=== PATIENT | female | born 1970 | race Caucasian/White ===

== ENCOUNTER 2017-01-16 14:15 | Inpatient (IN) | payer MEDICARE, MEDICAID ==
[2017-01-16] VITALS (11 sets, daily range): BP systolic 116–157; BP diastolic 71–99; O2SAT 98
[~2017-01-16] VITALS: Ht 170.2 cm; Wt 94.7 kg
[2017-01-16] MEDS ORDERED: ONDANSETRON 4MG/2ML VIAL (J2405) As Ordered ONE ×3 (14:19→18:46)
[2017-01-16] MEDS ORDERED: ONDANSETRON 4MG/2ML VIAL (J2405) IV ONE ×2 (14:30→14:45)
[2017-01-16 14:44] LABS: BASO % 0.2 % (0.0-1.0); EOS # 0.1 K/mm3 (0.0-0.50); EOS % 1.6 % (0.0-3.0); LARGE UNSTAINED CELL # 0.1 K/mm3 (0.0-0.4); LARGE UNSTAINED CELL % 1.5 % (0.0-4.0); LYMPH # 1.3 K/mm3 (1.5-4.5); LYMPH % 16.4 % (24.0-44.0); MEAN CORPUSCULAR HEMOGLOBIN 33.2 pg (27.0-33.0); MEAN CORPUSCULAR HGB CONC 35.6 g/dl (32.0-36.5); MEAN CORPUSCULAR VOLUME 93.4 fl (80.0-96.0); MONO # 0.2 K/mm3 (0.0-0.8); NEUTROPHILS # 6.1 K/mm3 (1.8-7.7); NEUTROPHILS % 77.3 % (36.0-66.0); PLATELET COUNT, AUTOMATED 272 k/mm3 (150-450); RED CELL DISTRIBUTION WIDTH 12.6 % (11.5-14.5); WHITE BLOOD COUNT 7.9 K/mm3 (4.0-10.0)
[2017-01-16] MEDS ORDERED: NS 1,000 ML IV ONE (14:45)
[2017-01-16 14:50] LABS: INR 0.93
[2017-01-16] MEDS ORDERED: PANTOPRAZOLE SODIUM 40 MG in D5W MINI-BAG PLUS 50 ML IV SCH (15:00)
[2017-01-16] MEDS ORDERED: PANTOPRAZOLE 40MG INJ (PROTONIX) (C9113) IV ONE (15:00)
[2017-01-16 15:08] LABS: ANION GAP 3 MEQ/L (8-16); BLOOD UREA NITROGEN 15 MG/DL (7-18); CALCIUM LEVEL 8.4 MG/DL (8.5-10.1); CARBON DIOXIDE LEVEL 30 MEQ/L (21-32); CHLORIDE LEVEL 107 MEQ/L (98-107); CREATININE FOR GFR 0.87 MG/DL (0.55-1.02); GLOMERULAR FILTRATION RATE > 60.0 (>58); GLUCOSE, FASTING 100 MG/DL (70-105); POTASSIUM SERUM 4.1 MEQ/L (3.5-5.1); SODIUM LEVEL 140 MEQ/L (136-145)
[2017-01-16] MEDS ORDERED: METOCLOPRAMIDE INJ 10MG/2ML VIAL (J2765) IV ONE (15:15)
[2017-01-16] MEDS ORDERED: NS 1,000 ML IV SCH (15:30)
[2017-01-16] MEDS ORDERED: PHENYLEPHRINE 0.25% NASAL SPR 15 ML As Ordered ONE (15:31)
--- NOTE | 2017-01-16 16:32 | CR ---
DATE OF CONSULTATION: 01/16/2017 CHIEF COMPLAINT: Ingestion of alkali orally. HISTORY OF PRESENT ILLNESS: This is a 46-year-old woman with history of developmental delay, ingested Drano containing hydroxide approximately at 12 noon today. The patient noticed significant burning sensation on the tongue. She was having sandwich lunch at the time of the accident of ingestion. Her sister, who was at the scene said approximately 2-3 sips were taken by the patient. The patient was brought to the emergency department (ED) for further evaluation. In the emergency department, the patient did not complain of acute respiratory distress including stridor or chest pain. Her voice is about the same according to the patient's family. She complains of pain on the dorsal surface of the tongue as well as the back of the throat. She has no prior history of accidental ingestion of alkali. PAST MEDICAL HISTORY: Developmental delay. PAST SURGICAL HISTORY: None ascertained from the family members. MEDICATIONS: None. ALLERGIES: None. REVIEW OF SYSTEMS: As ascertained in the history above; otherwise, noncontributory. PHYSICAL EXAMINATION: On examination, the patient appeared in no acute distress. No drooling was noted. No stridor or wheezes were noted. Vital signs stable. Oxygen saturation greater then 91% on room air. HEAD/NECK: Normal external ears. Nasal dorsum unremarkable. Extraocular motion symmetrical and intact. No trismus. Mild redness on the inner aspect of the upper and lower lips. Minor saliva pooling in the oral cavity. Erythematous dorsum of the tongue. Tongue exhibits full and symmetrical motion with no deviation. Mild redness along the hard and soft palate. Posterior pharyngeal wall was not clearly visualized due to significant gagging there. No palpable cervical lymphadenopathy. Trachea midline. Palpable cricoid cartilage. PROCEDURE: Flexible laryngoscopy. INDICATION: Ingestion of alkali. The patient was in the upright position on the bed in the examination room. Both sides of the nasal cavity were decongested using Afrin. The adult flexible laryngoscope was used. It was introduced via the right nostril. All the nasal cavity and nasopharynx were unremarkable. Mild swelling of the posterior pharyngeal wall was noted. There was some mild edema along the base of the tongue. Swelling was noted along both sides of the aryepiglottic folds extending down to the inlet of the esophagus. Piriform sinuses were partially visualized due to edema. Vocal cords were found to be mobile and free of mucosal lesions. IMPRESSION: This 46-year-old woman had accidental ingestion of alkali approximately 3-1/2 hours ago. PLAN: The patient will be assessed by gastroenterology for lesion in the esophagus from the ingestion. The patient will need to be monitored closely for the airway compromise. She is in no acute respiratory distress that would require immediate intubation or tracheostomy at this time. The flexible laryngoscopy will be repeated in six hours from now if careful observation route is chosen. I have discussed the plan with the family members, as well as the rest of the medical care team, the ED physician, and the hospitalist who will be admitting the patient. DIA
[2017-01-16] MEDS ORDERED: fentaNYL 100 MCG/2 ML INJECTION (J3010) As Ordered ONE (16:46)
[2017-01-16] MEDS ORDERED: MIDAZOLAM INJ 2 MG/2 ML VIAL (J2250) As Ordered ONE ×4 (16:46→20:34)
[2017-01-16] MEDS ORDERED: PROPOFOL 200 MG/20 ML VIAL As Ordered ONE (16:46)
[2017-01-16] MEDS ORDERED: SUCCINYLCHOLINE 100 MG/5 ML SYRINGE (J0330) As Ordered ONE (16:46)
[2017-01-16] MEDS ORDERED: LIDOCAINE 2% INJ 100 MG/5 ML SDV (FOR ANES.) As Ordered ONE (16:46)
--- NOTE | 2017-01-16 16:47 | HPEPDOC ---
General Date of Admission Jan 16, 2017 at 15:19 Primary Care Physician: Jr Armijo MD Chief Complaint The patient is a 46-year-old female admitted with a reason for visit of accidental ingestion Of caustic alkali which occurred around lunch time today, apparently the pt suffers from baseline cognitive impairment and lives with her mother but her sister takes her on the weekend to give her a break. Today the sister was going to work and decide to bring drain-o with her, instead of taking the bottle she poured some into a water bottle, which apparently was inadvertently given to the pt. at lunch time. Accordingly the pt has 2-3 sips, about 2 oz. and then stated "ouch my tongue hurts" and ran to the sink and vomited up her sandwich which contained small specks of bright red blood. In the ED the pt is not complaining of any SOB, nor does she have stridor or voice change according to her family who is at beside, the pt. denies abdominal pain The pt's complaint on exam was that her tongue and back of her throat were still sore, she was not vomiting and denied being nauseas. Source: Patient, Family Exam Limitations: No limitations Timing/Duration: 4-6 hours Associated Symptoms: Malaise Home Medications No Active Prescriptions or Reported Meds Allergies Coded Allergies: No Known Drug Allergy (Unverified Allergy, Unknown, 07/26/12) GME ATTESTATION My preceptor for this patient encounter was physically present in the building during the encounter and was fully available. As needed, all aspects of the patient interview, examination, medical decision making process, and medical care plan development were reviewed and approved by the preceptor. Preceptor is aware and concurs with the plan as stated in the body of this note and will attest to such by his/her cosignature. 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 except weekends when she stays with her sister Review of Symptoms Constitutional: Reports: Malaise, Denies: Chills, Fever, Weakness Eyes: Denies: Pain, Vision change ENT: Denies: Head Aches Skin: Denies: Rash Pulmonary: Denies: Dyspnea, Cough, Pleuritic Chest Pain Cardiovascular: Denies: Chest Pain, Palpitations, Orthopnea Gastrointestinal: Reports: Nausea, Denies: Vomiting, Abdominal Pain, Diarrhea, Constipation, Melena, Hematochezia Genitourinary: Denies: Dysuria Neurological: Denies: Weakness Psych: Reports: Mood Normal, Other Psych (baseline cognitive impairment) Physical Examination General Exam: Positive: Alert, Cooperative, No Acute Distress Eye Exam: Positive: PERRLA, Conjunctiva & lids normal, EOMI, Negative: Sclera icteric, Ptosis ENT Exam: Positive: Mucous membr. moist/pink, Tongue Midline, Pharyngeal Edema , Nares Patent, Other ENT (tongue is not swollen but is erythematous ), Negative: Pharynx Normal (erythema posterior pharynx) Neck Exam: Positive: Supple, Negative: JVD, thyromegaly Chest Exam: Positive: Clear to auscultation, Normal air movement, Negative: Rales, Rhonchi, Wheezing, Diminished Heart Exam: Positive: Rate Normal, Normal S1, Normal S2, Negative: Gallops, Murmurs, Rubs Abdomen Exam: Positive: Normal bowel sounds, Soft, Negative: Tenderness, Hepatospenomegaly, Mass Extremity Exam: Negative: Clubbing, Edema Psych Exam: Positive: Mental status NL, Other (pt has baseline cognitive impairment) Vital Signs Vital Signs Date Time Temp Pulse Resp B/P (MAP) Pulse Ox O2 Delivery O2 Flow Rate FiO2 01/16/17 16:17 01/16/17 14:19 96.4 98 16 99 Room Air Laboratory Data Labs 24H Laboratory Tests 2 01/16/17 14:31: White Blood Count 7.9, Red Blood Count 4.28, Hemoglobin 14.2, Hematocrit 39.9, Mean Corpuscular Volume 93.4, Mean Corpuscular Hemoglobin 33.2H, Mean Corpuscular Hemoglobin Concent 35.6, Red Cell Distribution Width 12.6, Platelet Count 272, Neutrophils (%) (Auto) 77.3H, Lymphocytes (%) (Auto) 16.4L, Monocytes (%) (Auto) 3.0, Eosinophils (%) (Auto) 1.6, Basophils (%) (Auto) 0.2, Neutrophils # (Auto) 6.1, Lymphocytes # (Auto) 1.3L, Monocytes # (Auto) 0.2, Eosinophils # (Auto) 0.1, Basophils # (Auto) 0.0, Large Unclassified Cells % 1.5 , Large Unclassified Cells # 0.1, Prothrombin Time 12.5, Prothromb Time International Ratio 0.93, Activated Partial Thromboplast Time 23.5L, Anion Gap 3L, Glomerular Filtration Rate > 60.0, Blood Urea Nitrogen 15, Creatinine 0.87, Sodium Level 140, Potassium Level 4.1, Chloride Level 107, Carbon Dioxide Level 30, Calcium Level 8.4L CBC/BMP Laboratory Tests 01/16/17 14:31 Red Blood Count 4.28, Mean Corpuscular Volume 93.4, Mean Corpuscular Hemoglobin 33.2 H, Mean Corpuscular Hemoglobin Concent 35.6, Red Cell Distribution Width 12.6, Neutrophils (%) (Auto) 77.3 H, Lymphocytes (%) (Auto) 16.4 L, Monocytes (% ) (Auto) 3.0, Eosinophils (%) (Auto) 1.6, Basophils (%) (Auto) 0.2, Neutrophils # (Auto) 6.1, Lymphocytes # (Auto) 1.3 L, Monocytes # (Auto) 0.2, Eosinophils # (Auto) 0.1, Basophils # (Auto) 0.0, Calcium Level 8.4 L Problems (1) Accidental ingestion of caustic alkali Status: Acute Response to Treatment: Stable Problem Text: ENT in ED performed flexible laryngoscopy and noted pharyngeal edema noted to esophageal inlet area - appreciate their recommendations CXR ordered for evaluation mediastinitis, no acute disease or change on preliminary radiology read out GI director of food and nutrition services consulted, will take pt to OR immediately for EGD for further evaluation-appreciate their recommendations primary concern is potential perforation, pt will be admitted to ICU and closely monitored for increasing pain, stridor, change in voice, hypotension At this time, decision to intubate is held and close monitoring will ensure with expected repeat laryngoscopy by ENT in about 6 hours pending clinical course Pt on protonix drip. Zofran for nausea Pt made NPO Started on IVF Will likely require f/u outpt with GI for potential stricture formation after acute event (2) DVT prophylaxis Status: Acute Response to Treatment: Stable Problem Text: scd teds Plan / VTE VTE Prophylaxis Ordered?: Yes GME ATTESTATION GME ATTESTATION My preceptor for this patient encounter was physically present in the building during the encounter and was fully available. As needed, all aspects of the patient interview, examination, medical decision making process, and medical care plan development were reviewed and approved by the preceptor. Preceptor is aware and concurs with the plan as stated in the body of this note and will attest to such by his/her cosignature. GME ATTESTATION GME ATTESTATION My preceptor for this patient encounter was physically present in the building during the encounter and was fully available. As needed, all aspects of the patient interview, examination, medical decision making process, and medical care plan development were reviewed and approved by the preceptor. Preceptor is aware and concurs with the plan as stated in the body of this note and will attest to such by his/her cosignature. GME ATTESTATION GME ATTESTATION My preceptor for this patient encounter was physically present in the building during the encounter and was fully available. As needed, all aspects of the patient interview, examination, medical decision making process, and medical care plan development were reviewed and approved by the preceptor. Preceptor is aware and concurs with the plan as stated in the body of this note and will attest to such by his/her cosignature. ANDREA CR DO Jan 16, 2017 16:47
[2017-01-16] MEDS ORDERED: dexameTHASONE 4 MG/ML 1ML VIAL (J1100) As Ordered ONE (18:02)
--- NOTE | 2017-01-16 18:15 | ROOR ---
Patient Name: Isela Graff Procedure Date: 01/16/2017 5:12 PM Date of : 1970 Age: 46 Gender: Female Note Status: Finalized Procedure: Upper GI endoscopy Indications: Endoscopy to assess acute esophageal injury after caustic ingestion, Exclusion of gastrointestinal injury due to caustic ingestion, Endoscopy to assess acute gastrointestinal injury after caustic ingestion Providers: Alexis Martin MD Referring MD: Kirit Hathaway MD Requesting Provider: Medicines: General Anesthesia Complications: No immediate complications. Procedure: Pre-Anesthesia Assessment: - The heart rate, respiratory rate, oxygen saturations, blood pressure, adequacy of pulmonary ventilation, and response to care were monitored throughout the procedure. The Endoscope was introduced through the mouth, and advanced to the second part of duodenum. The upper GI endoscopy was accomplished without difficulty. The patient tolerated the procedure well. Findings: Quan Caustic Ingestion Injury Grade 2a (superficial ulceration, erosions, friability, blisters, exudates, hemorrhages, whitish membranes) caustic esophagitis was found in the entire esophagus. Diffuse severe mucosal changes characterized by erythema, erosion, hemorrhagic appearance and linear erosions were found in the cardia, in the gastric fundus, in the gastric body and in the gastric antrum. The exam was otherwise without abnormality. Impression: - Caustic Ingestion Injury Grade 2a caustic esophagitis. - Erythematous, eroded, hemorrhagic appearing and linearly eroded mucosa in the cardia, gastric fundus, gastric body and antrum. - The examination was otherwise normal. - No specimens collected. Recommendation: - Return patient to hospital [facility] for ongoing care. - The findings and recommendations were discussed with the patient's family. Attending Participation: I personally performed the entire procedure. Alexis Martin MD Alexis Martin MD 01/16/2017 6:14:31 PM This report has been signed electronically. Number of Addenda: 0 Note Initiated On: 01/16/2017 5:12 PM Estimated Blood Loss: Estimated blood loss: none.
[2017-01-16] MEDS ORDERED: ONDANSETRON 4MG/2ML VIAL (J2405) IV PRN (19:00)
[2017-01-16] MEDS ORDERED: HYDROmorphone HCL 1 MG/ML SYRINGE (J1170) IV PRN (19:00)
[2017-01-16] MEDS ORDERED: PERCOCET 5MG/325MG TAB PO PRN (19:00)
[2017-01-16] MEDS ORDERED: fentaNYL 100 MCG/2 ML INJECTION (J3010) IV PRN (19:00)
[2017-01-16] MEDS ORDERED: LR 1,000 ML IV SCH (19:00)
[2017-01-16] MEDS ORDERED: cefTRIAXone SOD 2 GM in D5W MINI-BAG PLUS 50 ML IV SCH (20:00)
[2017-01-16] MEDS ORDERED: MORPHINE 2 MG/ML 1ML SYRINGE As Ordered ONE (20:33)
[2017-01-16] MEDS ORDERED: PROPOFOL 1,000 MG/100 ML VIAL As Ordered ONE ×2 (20:38→21:15)
[2017-01-16] MEDS ORDERED: MORPHINE 2 MG/ML 1ML SYRINGE IV ONE (21:15)
[2017-01-16] MEDS ORDERED: PROPOFOL 1,000 MG in APPROPRIATE DILUENT 1 EA IV SCH (21:15)
[2017-01-16] MEDS ORDERED: MIDAZOLAM INJ 5 MG/ML VIAL (J2250) IV ONE (21:15)
[2017-01-16] MEDS ORDERED: PROPOFOL 200 MG/20 ML VIAL IV ONE (21:15)
--- NOTE | 2017-01-16 21:25 | DSES ---
DATE OF ADMISSION: 01/16/2017 at 1519 DATE OF DISCHARGE: 01/16/2017 at 2020 IMMEDIATE TRANSFER TO: [facility] ([facility] due to impending esophageal rupture from an accidental ingestion of alkali causing severe esophagitis. ACCEPTING PHYSICIAN at [facility]: Dr. Medina CONSULTANTS DURING THIS ADMISSION: 1. Ears, nose and throat surgeon, Dr. Kirit Hathaway. 2. Rn Research, Dr. Alexis Martin. 3. Filter Press Tender intensive health specialist, Dr. Eagle Mccloud. PROCEDURES DURING THIS ADMISSION: 1. Laryngoscopy by Dr. Kirit Hathaway, ENT, 01/16/2017, at 1601. 2. Esophagogastroduodenoscopy by Dr. Alexis Martin at 01/16/2017 at 17:12. 3. Endotracheal intubation with mechanical ventilation at 2020, 01/16/[address] Eagle Mccloud. DISCHARGE DIAGNOSES: 1. Accidental ingestion of alkali. 2. Caustic alkali burn with severe esophagitis. 3. Caustic esophagitis with hemorrhage and erosion into the cardia, gastric fundus, gastric body and antrum. 4. Prophylactic endotracheal intubation due to impending esophageal rupture due to caustic alkali burn. 5. Pharyngeal, aryepiglottic fold extending down to the inlet of the esophagus edema. 6. Developmental delay. DISCHARGE MEDICATIONS: - dextrose 5% (D5) half normal saline 100 mL per hour - ceftriaxone 2 grams intravenous (IV) every 24 - Protonix drip 8 mg per hour HOSPITAL COURSE: This is a 46-year-old developmentally delayed female who lives with her mother usually, with her sister taking care of her on the weekends so that the mother can have a break, was brought in to the emergency room due an accidental alkali ingestion at 1300 while eating a sandwich at home for lunch. Patient's sister was going to work tomorrow and wanted to bring Drano to her work, but did not want to bring the entire jug. She then poured the Drano into a water bottle and placed it on the [employer] cabinet next to the kitchen. The sister's boyfriend made the patient a sandwich in the kitchen, and when the sister came into the kitchen, the patient complained of mouth and tongue burning pain after drinking a few sips from the blue mike-aid colored water bottle with her sandwich. She stood up and was retching over the sink with blood-tinged emesis, along with pieces of the sandwich which she had recently ingested. She was seen in the emergency room by Dr. Westley Capps and was admitted to Hospitalist Service at 1519. Ear, nose, and throat surgeon, Dr. Kirit Hathaway, performed a flexible laryngoscopy showing significant erythema, edema along both sides of the aryepiglottic fold extending down to the inlet of the esophagus, with some edema at the base of the tongue as well. Due to swelling found on both sides of the aryepiglottic fold extending down to the inlet of the esophagus, severe concern about montanez in the esophagus were raised, and EGD was performed by our abalone processor, Dr. Alexis Martin, in the operating room at 17:12. The patient was found to have ulceration, erosions, blisters, and hemorrhages with whitish membranes with severe caustic esophagitis in the entire esophagus with diffuse, severe edema and erythema, erosion and hemorrhage the cardia, gastric fundus and gastric body and gastric antrum. Dr. Martin, VINH cone marker, discussed the case with Dr. Doroteo Beyer, Cardiothoracic Surgeon, who does not repair esophageal ruptures anymore. Due to the severity of the erosions and impending esophageal rupture, Dr Martin recommended immediate transfer a tertiary care center where cardiothoracic surgery would be available should her esophagus rupture. Chest Xrays were obtained serially to check for air to rule out perforation. Vitals remained stable. Dr. Medina from medical intensive care unit (ICU) at [facility] in [place] has accepted the patient in transfer, and recommended prophylactic intubation due to the instability of her airway and potential risk of rupture and airway compromise en route to [place] as we transfer from [facility] to [facility]. The patient's family was made aware of the current condition and was in agreement with the current course of action. The patient's mother who is the patient's healthcare proxy was present at the bedside both during the laryngoscopy, was informed of the EGD results. Prior to transferring to [facility]. Dr. Eagle Mccloud was consulted for prophylactic intubation due to concerns of severe laryngeal edema, and concerns for respiratory compromise en route to [place]. Dr. Carlson, anesthesiologist cone marker, who assisted VINH Lantigua, during the earlier EGD, was consulted to assist in the prophylactic intubation in the ICU by Dr. Mccloud. Per Dr Mccloud, noticed significant progression of caustic injury with increased edema, erosions within three hours (17:12 to 20:40) from the time of the EGD to the time of the prophylactic intubation prior to transfer. Patient was had stable vitals on transfer, and family was present and in agreement with the management plan. PHYSICAL EXAMINATION ON HOSPITAL DISCHARGE (PRIOR TO INTUBATION): VITALS ON DISCHARGE: Temperature 99.8, pulse 99, respiratory rate 20, blood pressure 131/56, 99% on room air. GENERAL: The patient is awake, alert, oriented times three. She has not been intubated as of yet. HEENT: Pupils are round and reactive. Extraocular muscles are intact. Anicteric sclerae. No jaundice. No jugular venous distention. The patient has some erythema along the upper and lower lips with pooling of saliva, significant redness along the hard and soft palate. LUNGS: Clear to auscultation. No wheezes, rales, or rhonchi. HEART: S1, S2. Sinus rhythm. ABDOMEN: Soft, nontender, nondistended. Positive bowel sounds. EXTREMITIES: No cyanosis, clubbing or pitting edema. LABORATORY DATA ON DISCHARGE: White count 7.9, hemoglobin 14, hematocrit 39, platelet count 272, 77.3% neutrophils. Sodium 140, potassium 4.1, chloride 107, bicarbonate 30, BUN 15, creatinine 0.87 , glucose of 100. INR of 0.93. IMAGING: Chest x-ray no active disease. No free air. Indirect laryngoscopy done by Dr. Kirit Hathaway, flexible laryngoscopy shows unremarkable nasal and nasopharynx. Mild swelling of the posterior pharyngeal wall, edema along the base of the tongue, swelling along both sides of the aryepiglottic fold down into the esophagus. Piriform sinuses were partially visualized due to edema. Vocal cords were mobile and free of mucosal lesion. EGD performed by Dr. Alexis Martin, caustic ingestion injury grade 2A, ulceration, erosion, friability blisters, exudates, hemorrhages, white membranes , caustic esophagitis found in the entire esophagus with diffuse, severe mucosal changes characterized by erythema, erosion, hemorrhage appearance and linear erosions found in the cardia, gastric fundus, gastric body and gastric antrum. Otherwise without abnormality. TIME SPENT ON DISCHARGE: 45 minutes. MTDD
[2017-01-17] MEDS ORDERED: D5W/0.45% SODIUM CHLORIDE 1,000 ML IV SCH (01:30)
--- NOTE | 2017-01-17 06:05 | ECGEPIP ---
Stationary ECG Study [facility] - ED Test Date: 2017-01-16 Pat Name: JOSE JUAN MICHAEL Department: Room: - Gender: F Cost Analyst: CHRISTELLE : 1970 Requested By: Lino Terry Order Number: [id number] Reading MD: Lino Capps Measurements Intervals Weems Rate: 92 P: 58 SC: 140 QRS: 68 QRSD: 66 T: 63 QT: 338 QTc: 418 Interpretive Statements SINUS RHYTHM POSSIBLE LAE NO PRIORS Electronically Signed On 01-17-2017 6:04:51 EDT by Lino Capps
--- NOTE | 2017-01-17 13:20 | RO ---
DATE OF PROCEDURE: 01/16/2017 PREOPERATIVE DIAGNOSIS: Laryngeal edema. POSTOPERATIVE DIAGNOSIS: Laryngeal edema with erythematous and friable mucosa in the posterior pharynx, right greater than the left, vocal cord edema. PROCEDURE: Endotracheal tube intubation. SURGEON: Dr. Eagle Mccloud STORE FACILITY TECHNICIAN: ANESTHESIA: DESCRIPTION OF PROCEDURE: The patient was seen in the intensive care unit having consumed Drano wall cleaner. Upper GI endoscopy performed earlier showed diffuse edema with ulceration, and there was felt to be a risk for progression to esophageal disruption. The patient is to be transferred and a secure airway is required. The procedure was explained to the patient as were all the possible complications pertaining thereto and informed consent was obtained. The airway was topically anesthetized with Cetacaine. The patient was given anesthetic for the procedure with titrating doses of Versed, morphine and propofol. When sufficient relaxation had been obtained, a GlideScope was placed. The glottis was visualized but the glottic aperture was unable to be visualized adequately. The GlideScope was removed, and a #2 Smith blade was introduced with visualization of the vocal cords. The mucosa of the upper pharynx was erythematous and friable, right side greater than the left, cords were edematous but patent and moving normally. A number 8.5 endotracheal tube was placed through the vocal cords to a distance of 25 cm. The balloon was inflated, end tidal CO2 monitoring was positive. Postprocedure chest x-ray identified tube placement to be somewhat deep. The tube was retracted 1 cm. Good bilateral breath sounds were appreciated. Mechanical ventilation was initiated. There were no complications. MTDD
--- NOTE | 2017-01-17 13:20 | REP ---
PORTABLE CHEST: AP portable view of the chest is performed. There is elevation of the left hemidiaphragm. There is mild bibasilar fibroatelectatic change. No consolidation is seen. Heart is normal in size and the mediastinal silhouette is unremarkable. IMPRESSION: Mild bibasilar fibroatelectatic change. Signed by Enoc House MD 01/17/2017 07:01 P
--- NOTE | 2017-01-17 13:22 | REP ---
PORTABLE CHEST: AP portable view of the chest is performed and compared to prior exam the same day. There is placement of an endotracheal tube. The tip is about 1.1 cm above the adi. Mild discoid atelectasis is seen in the lung bases. Cardiomediastinal silhouette is unremarkable and unchanged. Signed by Enoc House MD 01/17/2017 07:14 P
--- NOTE | 2017-01-17 13:22 | REP ---
SINGLE VIEW CHEST: Comparison the same day. There is no evidence of acute infiltrate. No pleural effusion is seen. The heart is normal in size. The mediastinal silhouette is unremarkable. The visualized osseous structures are intact. IMPRESSION: No acute pulmonary disease. Signed by Enoc House MD 01/17/2017 07:14 P
--- NOTE | 2017-01-25 21:02 | CR ---
DATE OF CONSULTATION: 01/16/2017 This is a 46-year-old white female who was seen on an emergent basis due to a sudden accidental ingestion of Drano. The patient has a history of developmental delay. She apparently was staying with her sister over the weekend and was eating a sandwich and somehow accidentally swallowed an unknown amount of Drano from an apparent water bottle. The patient noticed a burning sensation in her tongue and tried to spit out her food and she apparently did have some hematemesis. The patient was seen by Dr. Kirit Hathaway in the emergency room in which he was able to examine the back of her throat and noted some swelling and edema. She apparently did not have any evidence of stridor or respiratory distress. No complaints of chest pain. The patient has some pain in the back of her throat and on the dorsal aspect of her tongue. This was not a suicidal attempt, this was an accidental ingestion. PAST MEDICAL HISTORY: 1. Developmental delay. PAST SURGICAL HISTORY: Unknown. MEDICATIONS: None. ALLERGIES: No known allergies. REVIEW OF SYSTEMS: Noncontributory. PHYSICAL EXAMINATION: Well-developed, well-nourished white female in no obvious acute distress. Chest was clear to auscultation. Cardiovascular exam showed a regular rhythm and no murmurs or gallops. Normal physiological split S1-S2. Abdomen soft, nontender. No masses, rebound, or hepatosplenomegaly. Bowel sounds are positive. Laboratory studies on admission showed a normal white count of 7900, hemoglobin was 14.2, hematocrit of 39.9. The patient's chemistry was normal. The patient's coagulation studies were normal. IMAGING STUDIES: Tests showed on 01/16/2017, chest x-rays all which were essentially normal. ANALYSIS: An accidental ingestion of Drano. At the present time, will be bringing the patient to the OR for intubation to assess esophageal and stomach involvement, to see whether she actually was able to swallow any of the Drano and cause damage. The patient probably should be maintained intubated. Will be discussing this further with thoracic surgery and the cephalometric analyst in ICU. PLAN: 1. As soon as possible, EGD to be arranged in the OR with intubation.
== END 2017-01-16 21:37 | disposition short-term general hospital (02) | DRG 917 ==
LOC: M ED 14:15 → OBSVTOIN 15:19 → M ED INP 15:19 → INTOOBSV 15:19 → M PCU 19:01 → M ICU 20:00
PROVIDERS: ADMIT General Practice; ATTEND General Practice
PROC: 0CJS8ZZ Inspection of Larynx, Via Natural or Artificial Opening Endoscopic (ICD-10-PCS; 2017-01-16)
PROC: 5A1935Z Respiratory Ventilation, Less than 24 Consecutive Hours (ICD-10-PCS; 2017-01-16)
PROC: 0BH17EZ Insertion of Endotracheal Airway into Trachea, Via Natural or Artificial Opening (ICD-10-PCS; 2017-01-16)
PROC: 0DJ08ZZ Inspection of Upper Intestinal Tract, Via Natural or Artificial Opening Endoscopic (ICD-10-PCS; principal; 2017-01-16 16:51)
DX: T54.3X1A Toxic effect of corrosive alkalis and alkali-like substances, accidental (unintentional), initial encounter (principal); K22.11 Ulcer of esophagus with bleeding; K25.4 Chronic or unspecified gastric ulcer with hemorrhage; T28.1XXA Burn of esophagus, initial encounter; T28.6XXA Corrosion of esophagus, initial encounter; J39.2 Other diseases of pharynx

== ENCOUNTER 2017-01-25 13:24 | Emergency (ER) | payer MEDICARE, MEDICAID ==
[~2017-01-25] VITALS: Ht 170.2 cm; Wt 89.5 kg
[2017-01-25] MEDS ORDERED: SENN8.6C PO (13:35)
[2017-01-25] MEDS ORDERED: PANT40TA2 PO (13:35)
--- NOTE | 2017-01-25 15:43 | REP ---
KUB: Two views. History: Obstruction versus constipation. Findings: There is a left upper quadrant enterostomy tube noted. The rectum is distended with formed stool. The rectum fills the bony pelvis, 13.7 cm in right to left dimension. There is mild gaseous distension of the proximal colon. No small bowel dilation is seen. Impression: Findings consistent with fecal impaction obstipation. Signed by Ezio Jones MD 01/25/2017 04:58 P
[2017-01-25 17:01] VITALS: BP 140/73
== END 2017-01-25 17:04 | disposition home or self-care (01) ==
LOC: M ED 13:24
DX: K56.41 Fecal impaction (principal); F70 Mild intellectual disabilities; Z79.899 Other long term (current) drug therapy; Z93.4 Other artificial openings of gastrointestinal tract status

== ENCOUNTER → 2017-05-18 | Outpatient (CLI) | payer MEDICARE, MEDICAID | LOC: M LRY 08:25 | DX: N28.1 Cyst of kidney, acquired (principal) | CPT/HCPCS: 76775 ==

== ENCOUNTER → 2017-08-06 | Outpatient (CLI) | payer MEDICARE, MEDICAID | LOC: M PLARAD 09:40 | DX: N28.89 Other specified disorders of kidney and ureter (principal) | CPT/HCPCS: 74181 ==

== ENCOUNTER → 2018-02-02 | Outpatient (CLI) | payer MEDICARE, MEDICAID | LOC: M SMT 08:44 | DX: N93.8 Other specified abnormal uterine and vaginal bleeding (principal) | CPT/HCPCS: 76856 ==

== ENCOUNTER → 2018-03-02 | Outpatient (REF) | payer MEDICARE, MEDICAID | LOC: M SFHCLERA 09:44 | DX: S90.811A Abrasion, right foot, initial encounter (principal); X58.XXXA Exposure to other specified factors, initial encounter; Y92.89 Other specified places as the place of occurrence of the external cause | CPT/HCPCS: 87070; 87186 ==

== ENCOUNTER 2018-03-14 09:16 | Day surgery (SDC) | payer MEDICARE, MEDICAID ==
[2018-03-14 09:57] LABS: HEMATOCRIT 39.6 % (36.0-47.0); MEAN CORPUSCULAR HEMOGLOBIN 29.8 pg (27.0-33.0); MEAN CORPUSCULAR HGB CONC 32.8 g/dl (32.0-36.5); MEAN CORPUSCULAR VOLUME 90.8 fl (80.0-96.0); PLATELET COUNT, AUTOMATED 213 10^3/uL (150-450); RED BLOOD COUNT 4.36 10^6/uL (4.00-5.40); RED CELL DISTRIBUTION WIDTH 12.8 % (11.5-14.5); WHITE BLOOD COUNT 4.6 10^3/uL (4.0-10.0)
[2018-03-14] MEDS: LR 1,000 ML IV ×2 (10:11)
[2018-03-14 10:15] LABS: CONTROL LINE UCG INT CTR LINE PRESENT; URINE PREG TEST NEGATIVE (NEGATIVE)
[2018-03-14] MEDS ORDERED: dexameTHASONE 4 MG/ML 1ML VIAL (J1100) As Ordered ×2 (10:40)
[2018-03-14] MEDS ORDERED: PROPOFOL 200 MG/20 ML VIAL As Ordered ×2 (10:40)
[2018-03-14] MEDS ORDERED: ONDANSETRON 4MG/2ML VIAL (J2405) As Ordered ×2 (10:40)
[2018-03-14] MEDS ORDERED: LIDOCAINE 2% INJ 100 MG/5 ML SDV (FOR ANES.) As Ordered ×2 (10:40)
[2018-03-14] MEDS ORDERED: MIDAZOLAM INJ 2 MG/2 ML VIAL (J2250) As Ordered ×2 (10:46)
[2018-03-14] MEDS ORDERED: fentaNYL 100 MCG/2 ML INJECTION (J3010) As Ordered ×2 (10:46)
[2018-03-14] MEDS ORDERED: KETOROLAC 60 MG/2 ML VIAL (J1885) As Ordered ×2 (11:52)
[2018-03-14] MEDS ORDERED: ePHEDrine SULFATE 25 MG/5 ML(5MG/ML) SYRINGE As Ordered ×2 (11:56)
[2018-03-14] MEDS ORDERED: ONDANSETRON 4MG/2ML VIAL (J2405) IV ×2 (13:00)
[2018-03-14] MEDS ORDERED: fentaNYL 100 MCG/2 ML INJECTION (J3010) IV ×2 (13:00)
[2018-03-14] MEDS ORDERED: LR 1,000 ML IV ×4 (13:00)
[2018-03-14] MEDS ORDERED: PERCOCET 5MG/325MG TAB PO ×2 (13:00)
[2018-03-14] MEDS: ACETAMINOPHEN 500 MG TAB PO ×2 (13:00)
== END 2018-03-14 15:22 | disposition home or self-care (01) ==
LOC: M SDC 09:16
DX: N93.9 Abnormal uterine and vaginal bleeding, unspecified (principal); N84.0 Polyp of corpus uteri; F41.9 Anxiety disorder, unspecified; F79 Unspecified intellectual disabilities; R13.10 Dysphagia, unspecified; T54 Toxic effect of corrosive substances; Z12.4 Encounter for screening for malignant neoplasm of cervix
CPT/HCPCS: 58558

== ENCOUNTER → 2018-04-28 | Outpatient (CLI) | payer MEDICARE, MEDICAID ==
[~2018-04-28] MED LIST: PANT40TA3 PO; SENN8.6C PO
--- NOTE | 2018-04-28 13:47 | REP ---
LEFT ELBOW, FOUR VIEWS: HISTORY: Pain. There is no acute fracture or dislocation. The joint space is normal in appearance. IMPRESSION: There is no acute fracture or dislocation. Electronically Signed by Marlon Mcgee MD 04/28/2018 01:48 P
== END ==
LOC: M LRY 13:17
PROVIDERS: ATTEND Physician Assistant
DX: M25.522 Pain in left elbow (principal)
CPT/HCPCS: 73080; G0463

== ENCOUNTER → 2018-09-23 | Outpatient (REF) | payer MEDICARE, MEDICAID ==
[2018-09-23 16:53] LABS: HCG, SERUM QUALITATIVE NEGATIVE (NEGATIVE)
[2018-09-23 17:00] LABS: BASO % 0.4 % (0.0-1.0); EOS # 0.1 10^3/uL (0.0-0.50); EOS % 1.7 % (0.0-3.0); HEMATOCRIT 33.9 % (36.0-47.0); HEMOGLOBIN 11.1 g/dl (12.0-15.5); LYMPH # 1.5 10^3/uL (1.5-4.5); LYMPH % 29.2 % (24.0-44.0); MEAN CORPUSCULAR HEMOGLOBIN 30.7 pg (27.0-33.0); MEAN CORPUSCULAR HGB CONC 32.7 g/dl (32.0-36.5); MEAN CORPUSCULAR VOLUME 93.6 fl (80.0-96.0); MONO # 0.5 10^3/uL (0.0-0.8); MONO % 9.5 % (0.0-5.0); NEUTROPHILS # 3.1 10^3/uL (1.8-7.7); NEUTROPHILS % 58.8 % (36.0-66.0); PLATELET COUNT, AUTOMATED 285 10^3/uL (150-450); RED BLOOD COUNT 3.62 10^6/uL (4.00-5.40); WHITE BLOOD COUNT 5.3 10^3/uL (4.0-10.0)
== END ==
LOC: M SFHCLERA 11:09
PROVIDERS: ATTEND Family Medicine
DX: N95.1 Menopausal and female climacteric states (principal)
CPT/HCPCS: 84703; 85025; G0463

== ENCOUNTER → 2018-11-26 | Outpatient (REF) | payer MEDICARE, MEDICAID ==
[2018-11-26 19:36] LABS: APPEARANCE, URINE HAZY (CLEAR); BACTERIA, URINE AUTO 1+ (NEGATIVE); BILIRUBIN, URINE AUTO NEGATIVE (NEGATIVE); BLOOD, URINE BLOOD NEGATIVE (NEGATIVE); COLOR, URINE YELLOW (YELLOW); GLUCOSE, URINE (UA) AUTO NEGATIVE (NEGATIVE); KETONE, URINE AUTO NEGATIVE (NEGATIVE); LEUKOCYTE ESTERASE, URINE AUTO NEGATIVE (NEGATIVE); MUCUS, URINE SMALL (NEGATIVE); NITRITE, URINE AUTO NEGATIVE (NEGATIVE); PROTEIN, URINE AUTO NEGATIVE (NEGATIVE); RBC, URINE AUTO 3 /HPF (0-3); SPECIFIC GRAVITY URINE AUTO 1.018 (1.002-1.035); SQUAMOUS EPITHELIAL CELL UR AU 1 /HPF (0-6); UROBILINOGEN, URINE AUTO 0.2 mg/dL (0.0-2.0); WBC, URINE AUTO 4 /HPF (0-3)
[2018-11-26 19:42] LABS: BASO % 0.4 % (0.0-1.0); EOS # 0.1 10^3/uL (0.0-0.50); EOS % 1.7 % (0.0-3.0); HEMOGLOBIN 12.4 g/dl (12.0-15.5); LYMPH # 1.7 10^3/uL (1.5-4.5); LYMPH % 30.7 % (24.0-44.0); MEAN CORPUSCULAR HEMOGLOBIN 30.8 pg (27.0-33.0); MEAN CORPUSCULAR HGB CONC 32.6 g/dl (32.0-36.5); MEAN CORPUSCULAR VOLUME 94.3 fl (80.0-96.0); MONO # 0.4 10^3/uL (0.0-0.8); MONO % 7.8 % (0.0-5.0); NEUTROPHILS # 3.2 10^3/uL (1.8-7.7); NEUTROPHILS % 59.2 % (36.0-66.0); PLATELET COUNT, AUTOMATED 241 10^3/uL (150-450); RED BLOOD COUNT 4.03 10^6/uL (4.00-5.40); WHITE BLOOD COUNT 5.4 10^3/uL (4.0-10.0)
[2018-11-26 19:50] LABS: ALBUMIN 3.5 GM/DL (3.2-5.2); ALT/SGPT 24 U/L (12-78); BILIRUBIN,TOTAL 0.2 MG/DL (0.2-1.0); BLOOD UREA NITROGEN 12 MG/DL (7-18); CALCIUM LEVEL 8.2 MG/DL (8.5-10.1); CARBON DIOXIDE LEVEL 24 MEQ/L (21-32); CHLORIDE LEVEL 110 MEQ/L (98-107); CHOLESTEROL LEVEL 197 MG/DL (<200); CHOLESTEROL RISK RATIO 4.925 (<5); CREATININE FOR GFR 1.01 MG/DL (0.55-1.30); GLOMERULAR FILTRATION RATE > 60.0 (>58); GLUCOSE, FASTING 78 MG/DL (70-100); HDL CHOLESTEROL 40 MG/DL (>40); LDL CHOLESTEROL 119 MG/DL (<100); NON-HDL-C 157 MG/DL; POTASSIUM SERUM 4.2 MEQ/L (3.5-5.1); SODIUM LEVEL 141 MEQ/L (136-145); TOTAL PROTEIN 7.4 GM/DL (6.4-8.2); TRIGLYCERIDES LEVEL 190 MG/DL (<150)
[2018-11-26 19:58] LABS: HEMOGLOBIN A1c 5.3 %
== END ==
LOC: M SFHCLERA 09:41
PROVIDERS: ATTEND Family Medicine
DX: Z00.00 Encounter for general adult medical examination without abnormal findings (principal); R35.0 Frequency of micturition; E07.9 Disorder of thyroid, unspecified; E78.00 Pure hypercholesterolemia, unspecified

== ENCOUNTER → 2019-06-13 | Outpatient (CLI) | payer MEDICARE, MEDICAID ==
--- NOTE | 2019-06-13 15:50 | REPMRS ---
Patient History The patient states she has not had a clinical breast exam in over a year. Family history of prostate cancer in maternal grandfather. Digital Woman Screen Mammo: June 13, 2019 - Exam #: [id number] Bilateral CC and MLO view(s) were taken. Technologist: Qiana Salinas, Technologist Prior study comparison: January 24, 2013, digital woman screen mammo performed at [facility]. FINDINGS: There are scattered fibroglandular densities. There has been no change in the appearance of the mammogram from the prior studies. There is a mild amount of scattered fibroglandular density which is fairly symmetric. There is no interval development of dominant mass, architectural distortion, or grouped microcalcification suggestive of malignancy. 3-D tomosynthesis shows no additional findings. Assessment: BI-RADS/ACR category 1 mammogram. Negative Mammogram. Recommendation Routine screening mammogram of both breasts in 1 year (for women over age 40). This patient's Lifetime Breast Cancer Risk is estimated at 10.4 %. This mammogram was interpreted with the aid of an FDA-approved computer-aided dectection system. Electronically Signed By: Kemal Jones MD 06/13/19 [id number]
== END ==
LOC: M WHC 15:21
PROVIDERS: ATTEND Family Medicine
DX: Z12.31 Encounter for screening mammogram for malignant neoplasm of breast (principal)

== ENCOUNTER → 2019-08-31 | Outpatient (CLI) | payer MEDICARE, MEDICAID ==
--- NOTE | 2019-08-31 13:42 | REP ---
REASON FOR EXAM: Access for abscess formation. Multiple ultrasonographic images of the region of interest were obtained adjacent to the existing J-tube over an area of a palpable mass. In the area of interest, there is a 1.1 x 1.3 x 1.7 cm sized hypoechoic nearly anechoic region and arising from this, there appears to be linear decreased echoes extending to the muscular abdominal wall. Within this potential sinus tract, there is 5 mm echogenic linear area. IMPRESSION: Possible seroma or even developing abscess over a palpable abnormality which by history is erythematous and nonfluctuant. There appears to be a sinus tract extending from that region to the anterior muscular wall with an echogenic central area of uncertain etiology. This exam cannot completely rule out the possibility of a foreign body. This should be correlated clinically and if necessary followup with CT.
== END ==
LOC: M WHC 08:25
PROVIDERS: ATTEND Family Medicine
DX: L02.92 Furuncle, unspecified (principal)

== ENCOUNTER → 2019-10-02 | Outpatient (CLI) | payer MEDICARE, MEDICAID ==
[~2019-10-02] MED LIST changes: +GASTROGRAFIN SOLUTION 30ML (Q9963) As Ordered ONE; +ISOVUE-370 76% 100ML VIAL As Ordered ONE
--- NOTE | 2019-10-03 03:13 | REP ---
REASON FOR EXAM: Mass. No prior CTs for comparison. Previous ultrasound reviewed. The lack of intravenous contrast significantly decreases the sensitivity of the exam. A CT scan cannot be directly compared to an ultrasound due to the anatomical and modality differences. In the right lung base, there is a subtle asymmetric density, likely subsegmental atelectatic change. There are no pleural or pericardial effusions. Limited evaluation of the solid intra-abdominal organs and gallbladder shows no gross abnormalities. Limited evaluation of the pancreas, adrenal glands, and kidneys shows no gross abnormalities. Limited evaluation of the abdominal aorta and para-aortic regions shows no gross abnormalities. There is no free fluid in the abdomen or pelvis. There is no intra-abdominal or intrapelvic mass or adenopathy. The intra-abdominal bowel loops are unremarkable. There is a large amount of content in the rectosigmoid vault. There is no pelvic mass or adenopathy. Bone window technique throughout the examination shows the osseous structures to be within normal limits. IMPRESSION: Possible fecal impaction. Electronically Signed by Francisco Chauhan DO 10/03/2019 11:11 A
== END ==
LOC: M RAD 12:08
PROVIDERS: ATTEND Family Medicine
DX: R19.09 Other intra-abdominal and pelvic swelling, mass and lump (principal)
CPT/HCPCS: 74176; Q9963

== ENCOUNTER → 2019-11-02 | Outpatient (REF) | payer MEDICARE, MEDICAID ==
[~2019-11-02] MED LIST changes: -GASTROGRAFIN SOLUTION 30ML (Q9963) As Ordered ONE; -ISOVUE-370 76% 100ML VIAL As Ordered ONE; +PANT40TA29 PO; -PANT40TA3 PO
== END ==
LOC: M LAB REF 15:27
PROVIDERS: ATTEND Surgery
DX: L08.89 Other specified local infections of the skin and subcutaneous tissue (principal)

== ENCOUNTER → 2020-06-14 | Outpatient (CLI) | payer MEDICARE, MEDICAID ==
--- NOTE | 2020-06-14 10:22 | REPMRS ---
Patient History The patient states she has not had a clinical breast exam in over a year. Patient is postmenopausal and is nulliparous. Family history of prostate cancer in maternal grandfather. Digital Woman Screen Mammo: June 14, 2020 - Exam #: [id number] Bilateral CC and MLO view(s) were taken. Technologist: RT Louisa Prior study comparison: June 13, 2019, bilateral digital woman screen mammo performed at [facility]. January 11, 2018, bilateral digital mammo screening bilat, performed at [facility]. January 24, 2013, digital woman screen mammo performed at [facility]. FINDINGS: There are scattered fibroglandular densities. The Volpara volumetric breast density category is:B. There has been no change in the appearance of the mammogram from the prior studies. There is a mild amount of scattered fibroglandular density which is fairly symmetric. There is no interval development of dominant mass, architectural distortion, or grouped microcalcification suggestive of malignancy. 3-D tomosynthesis shows no additional findings. Assessment: BI-RADS/ACR category 1 mammogram. Negative Mammogram. Recommendation Routine screening mammogram of both breasts in 1 year (for women over age 40). This [facility] Lifetime Breast Cancer Risk is estimated at 13.4 %. This mammogram was interpreted with the aid of an FDA-approved computer-aided dectection system. Electronically Signed By: Kemal Jones MD 06/14/20 [id number]
== END ==
LOC: M WHC 08:52
PROVIDERS: ATTEND Family Medicine
DX: Z12.31 Encounter for screening mammogram for malignant neoplasm of breast (principal)

== ENCOUNTER 2020-07-28 06:19 | Emergency (ER) | payer MEDICARE, MEDICAID ==
[~2020-07-28] VITALS: Ht 167.6 cm; Wt 97.8 kg
[2020-07-28] MEDS ORDERED: SERT25TA21 PO (06:31)
--- NOTE | 2020-07-28 07:45 | REP ---
INDICATION: r/o aspiration pneumonia. COMPARISON: 01/16/2017, portable chest. TECHNIQUE: Upright PA and lateral chest. FINDINGS: The lung ybarra are clear. Cardiac size is normal. The marquis, mediastinum and skeletal structures are unremarkable. IMPRESSION: Essentially negative PA and lateral chest <Electronically signed by Enoc Medrano > 07/28/20 [id number]
[2020-07-28] MEDS ORDERED: E-Z-HD 98% w/w 340GM SUSP BTL As Ordered ONE (08:11)
[2020-07-28] MEDS ORDERED: E-Z-GAS II EFFERVESCENT PACKET (SODIUM BICARB./CITRIC ACID/SIMETHICONE) As Ordered ONE (08:11)
[2020-07-28] MEDS ORDERED: E-Z-PAQUE 96% w/w SUSP 176GM BTL As Ordered ONE (08:11)
--- NOTE | 2020-07-28 09:22 | REP ---
INDICATION: eval for esophageal obstruction. COMPARISON: None. TECHNIQUE: Multiple fluoroscopic images of the esophagus while drinking barium. FINDINGS: While having the patient ingest a small volume of barium fluoroscopic video images are performed in AP and lateral projections. There is intraluminal material, likely ingested food, at the mid esophagus that does not traveled into the distal esophagus or stomach. There appears to be focal mucosal hypertrophy versus scarring versus possible neoplasm at the midesophagus resulting esophageal obstruction. IMPRESSION: Focal mucosal hypertrophy, scarring or neoplasm at the midesophagus resulting in esophageal obstruction. Intraluminal filling defects are seen in the mid esophagus above the mucosal hypertrophy, likely ingested food material. Mid esophageal obstruction. <Electronically signed by Enoc Medrano > 07/28/20 [id number]
[2020-07-28] MEDS ORDERED: NS 1,000 ML IV ONE (10:35)
[2020-07-28 11:26] LABS: BASO % 0.2 % (0.0-1.0); EOS # 0.1 10^3/uL (0.0-0.5); HEMATOCRIT 44.7 % (36.0-47.0); LYMPH # 1.3 10^3/uL (1.5-5.0); LYMPH % 26.3 % (24.0-44.0); MEAN CORPUSCULAR HEMOGLOBIN 31.3 pg (27.0-33.0); MEAN CORPUSCULAR HGB CONC 33.6 g/dl (32.0-36.5); MEAN CORPUSCULAR VOLUME 93.1 fl (80.0-96.0); MONO # 0.4 10^3/uL (0.0-0.8); MONO % 7.3 % (2.0-8.0); NEUTROPHILS # 3.3 10^3/uL (1.5-8.5); PLATELET COUNT, AUTOMATED 222 10^3/uL (150-450); WHITE BLOOD COUNT 5.1 10^3/uL (4.0-10.0)
[2020-07-28 11:36] LABS: INR 0.95; PARTIAL THROMBOPLASTIN TIME 27.4 SECONDS (24.2-38.5); PROTHROMBIN TIME 12.8 SECONDS (12.5-14.3)
[2020-07-28 11:49] LABS: BLOOD UREA NITROGEN 11 MG/DL (7-18); CALCIUM LEVEL 9.2 MG/DL (8.5-10.1); CARBON DIOXIDE LEVEL 26 MEQ/L (21-32); CHLORIDE LEVEL 104 MEQ/L (98-107); GLOMERULAR FILTRATION RATE > 60.0 (>58); GLUCOSE, FASTING 82 MG/DL (70-100); POTASSIUM SERUM 3.8 MEQ/L (3.5-5.1); SODIUM LEVEL 140 MEQ/L (136-145)
[2020-07-28 12:29] LABS: RSV AMPLIFICATION NEGATIVE (NEGATIVE)
[2020-07-28 15:29] VITALS: BP 136/78
== END 2020-07-28 15:34 | disposition short-term general hospital (02) ==
LOC: M ED 06:19
DX: K22.2 Esophageal obstruction (principal); G80.9 Cerebral palsy, unspecified; F41.9 Anxiety disorder, unspecified; F79 Unspecified intellectual disabilities

== ENCOUNTER → 2021-06-18 | Outpatient (CLI) | payer MEDICARE, MEDICAID ==
[~2021-06-18] MED LIST changes: +SERT25TA21 PO
== END ==
LOC: M WHC 15:00
PROVIDERS: ATTEND Student in an Organized Health Care Education/Training Program
DX: Z12.31 Encounter for screening mammogram for malignant neoplasm of breast (principal)

== ENCOUNTER → 2022-01-22 | Outpatient (CLI) | payer MEDICARE, MEDICAID ==
[2022-01-22 17:53] LABS: BASO % 0.4 % (0.0-1.0); EOS # 0.1 10^3/uL (0.0-0.5); HEMATOCRIT 39.6 % (36.0-47.0); HEMOGLOBIN 13.4 g/dl (12.0-15.5); LYMPH # 2.1 10^3/uL (1.5-5.0); LYMPH % 36.3 % (24.0-44.0); MEAN CORPUSCULAR HEMOGLOBIN 31.5 pg (27.0-33.0); MEAN CORPUSCULAR HGB CONC 33.8 g/dl (32.0-36.5); MONO # 0.5 10^3/uL (0.0-0.8); MONO % 9.2 % (2.0-8.0); NEUTROPHILS # 2.9 10^3/uL (1.5-8.5); NEUTROPHILS % 51.7 % (36.0-66.0); PLATELET COUNT, AUTOMATED 218 10^3/uL (150-450); RED BLOOD COUNT 4.26 10^6/uL (4.00-5.40); WHITE BLOOD COUNT 5.6 10^3/uL (4.0-10.0)
[2022-01-22 18:20] LABS: ALBUMIN 3.8 GM/DL (3.2-5.2); ALT/SGPT 27 U/L (12-78); BILIRUBIN,TOTAL 0.2 MG/DL (0.2-1.0); BLOOD UREA NITROGEN 14 MG/DL (7-18); CARBON DIOXIDE LEVEL 29 MEQ/L (21-32); CHLORIDE LEVEL 107 MEQ/L (98-107); CHOLESTEROL LEVEL 232 MG/DL (<200); CREATININE FOR GFR 1.02 MG/DL (0.55-1.30); GLOMERULAR FILTRATION RATE > 60.0 (>51); GLUCOSE, FASTING 96 MG/DL (70-100); HDL CHOLESTEROL 40 MG/DL (>40); LDL CHOLESTEROL 125 MG/DL (<100); NON-HDL-C 192 MG/DL; SODIUM LEVEL 142 MEQ/L (136-145); TOTAL PROTEIN 7.3 GM/DL (6.4-8.2); TRIGLYCERIDES LEVEL 335 MG/DL (<150)
== END ==
LOC: M LAB 17:14
PROVIDERS: ATTEND Student in an Organized Health Care Education/Training Program
DX: Z00.00 Encounter for general adult medical examination without abnormal findings (principal); Z79.899 Other long term (current) drug therapy

== ENCOUNTER → 2022-03-18 | Outpatient (CLI) | payer MEDICARE, MEDICAID ==
[~2022-03-18] MED LIST changes: +PRAV40TA2 PO
== END ==
LOC: M LABSMTC 10:43
PROVIDERS: ATTEND Anesthesiology
DX: Z01.812 Encounter for preprocedural laboratory examination (principal); Z20.822 Contact with and (suspected) exposure to COVID-19

== ENCOUNTER 2022-03-23 11:32 | Day surgery (SDC) | payer MEDICARE, MEDICAID ==
[~2022-03-23] VITALS: Ht 167.6 cm; Wt 97.1 kg
[2022-03-23] MEDS ORDERED: LR 1,000 ML IV SCH ×2 (11:45→16:20)
[2022-03-23] MEDS ORDERED: BACITRACIN OINTMENT 30GM TUBE As Ordered ONE (14:23)
[2022-03-23] MEDS ORDERED: LIDOCAINE W/EPINEPHRINE 1% 20ML VIAL As Ordered ONE (14:24)
[2022-03-23] MEDS ORDERED: COCAINE 4% 4ML NASAL SOLUTION BTL As Ordered ONE (14:24)
[2022-03-23] MEDS ORDERED: fentaNYL 100 MCG/2 ML INJECTION As Ordered ONE (14:36)
[2022-03-23] MEDS ORDERED: MIDAZOLAM INJ 2MG/2ML VIAL (J2250 PER 1MG) As Ordered ONE (14:36)
[2022-03-23] MEDS ORDERED: LIDOCAINE 2% 100MG/5ML SDV (FOR ANES.) As Ordered ONE (14:36)
[2022-03-23] MEDS ORDERED: dexameTHASONE 4 MG/ML 1ML VIAL (J1100 PER 1MG) As Ordered ONE (14:36)
[2022-03-23] MEDS ORDERED: propofoL 200 MG/20 ML VIAL As Ordered ONE (14:36)
[2022-03-23] MEDS ORDERED: ONDANSETRON 4MG 2ML VIAL As Ordered ONE (14:36)
[2022-03-23] MEDS ORDERED: ACETAMINOPHEN 1000MG 100ML IV BAG As Ordered ONE (15:09)
[2022-03-23] MEDS ORDERED: ePHEDrine SULFATE 25 MG/5 ML(5MG/ML) SYRINGE As Ordered ONE (15:34)
[2022-03-23] MEDS ORDERED: fentaNYL 100 MCG/2 ML INJECTION IV PRN (15:35)
[2022-03-23] MEDS ORDERED: oxyCODONE 5MG TAB PO PRN (15:35)
[2022-03-23] MEDS ORDERED: ONDANSETRON 4MG 2ML VIAL IV PRN ×2 (15:35→16:25)
[2022-03-23] MEDS ORDERED: ANEXSIA, NORCO 7.5MG/325MG TABLET(HYDROCODONE/APAP) PO PRN (16:20)
[2022-03-23 16:34] VITALS: BP 124/75
== END 2022-03-23 17:00 | disposition home or self-care (01) ==
LOC: M SDC 11:32
PROVIDERS: ATTEND Otolaryngology
DX: J34.1 Cyst and mucocele of nose and nasal sinus (principal); E78.00 Pure hypercholesterolemia, unspecified; Z79.899 Other long term (current) drug therapy; F41.9 Anxiety disorder, unspecified; F32.A Depression, unspecified; F79 Unspecified intellectual disabilities
CPT/HCPCS: 11441; 88305; C9046; J0131; J1100; J2250; J2405; J3010

== ENCOUNTER → 2022-07-16 | Outpatient (CLI) | payer MEDICARE, MEDICAID | LOC: M WUC 13:17 | PROVIDERS: ATTEND Student in an Organized Health Care Education/Training Program | DX: F41.9 Anxiety disorder, unspecified (principal) ==

== ENCOUNTER → 2022-08-05 | Outpatient (CLI) | payer MEDICARE, MEDICAID ==
[2022-08-05 19:07] LABS: THYROID STIMULATING HORMONE 1.892 uIU/ML (0.55-4.78)
[2022-08-05 19:08] LABS: FREE T4 0.86 NG/DL (0.89-1.76)
== END ==
LOC: M LAB 17:50
PROVIDERS: ATTEND Student in an Organized Health Care Education/Training Program
DX: F41.9 Anxiety disorder, unspecified (principal)

== ENCOUNTER → 2022-08-07 | Outpatient (CLI) | payer MEDICARE, MEDICAID | LOC: M WHC 13:33 | PROVIDERS: ATTEND Student in an Organized Health Care Education/Training Program | DX: Z12.31 Encounter for screening mammogram for malignant neoplasm of breast (principal) ==

== ENCOUNTER → 2022-11-19 | Outpatient (REF) | payer MEDICARE, MEDICAID ==
[2022-11-19 17:38] LABS: FREE T4 0.89 NG/DL (0.89-1.76); THYROID STIMULATING HORMONE 1.734 uIU/ML (0.55-4.78)
== END ==
LOC: M SFHCLERA 16:32 → M LABWUC 16:32
PROVIDERS: ATTEND Student in an Organized Health Care Education/Training Program
DX: F41.9 Anxiety disorder, unspecified (principal)

== ENCOUNTER → 2023-08-12 | Outpatient (CLI) | payer MEDICARE, MEDICAID | LOC: M WHC 11:12 | PROVIDERS: ATTEND Physician Assistant | DX: Z12.31 Encounter for screening mammogram for malignant neoplasm of breast (principal) ==

== ENCOUNTER → 2023-10-01 | Outpatient (REF) | payer MEDICARE, MEDICAID | LOC: M SFHCLERA 12:04 | PROVIDERS: ATTEND Physician Assistant | DX: F41.9 Anxiety disorder, unspecified (principal); E78.2 Mixed hyperlipidemia; E55.9 Vitamin D deficiency, unspecified; R94.6 Abnormal results of thyroid function studies ==

== ENCOUNTER → 2023-10-02 | Outpatient (CLI) | payer MEDICARE, MEDICAID ==
[2023-10-02 12:36] LABS: APPEARANCE, URINE CLEAR (CLEAR); BACTERIA, URINE AUTO NEGATIVE (NEGATIVE); BILIRUBIN, URINE AUTO NEGATIVE (NEGATIVE); BLOOD, URINE BLOOD NEGATIVE (NEGATIVE); COLOR, URINE YELLOW (YELLOW); GLUCOSE, URINE (UA) AUTO NEGATIVE (NEGATIVE); KETONE, URINE AUTO NEGATIVE (NEGATIVE); LEUKOCYTE ESTERASE, URINE AUTO NEGATIVE (NEGATIVE); NITRITE, URINE AUTO NEGATIVE (NEGATIVE); PROTEIN, URINE AUTO NEGATIVE (NEGATIVE); RBC, URINE AUTO 3 /HPF (0-3); SPECIFIC GRAVITY URINE AUTO 1.019 (1.002-1.035); SQUAMOUS EPITHELIAL CELL UR AU 2 /HPF (0-6); UROBILINOGEN, URINE AUTO 0.2 mg/dL (0.0-2.0); WBC, URINE AUTO 0 /HPF (0-3)
[2023-10-02 12:40] LABS: BASO % 0.6 % (0.0-1.0); EOS # 0.1 10^3/uL (0.0-0.5); EOS % 1.9 % (0.0-3.0); HEMATOCRIT 43.5 % (36.0-47.0); HEMOGLOBIN 15.1 g/dl (12.0-15.5); LYMPH # 1.6 10^3/uL (1.5-5.0); LYMPH % 32.4 % (24.0-44.0); MEAN CORPUSCULAR HGB CONC 34.7 g/dl (32.0-36.5); MEAN CORPUSCULAR VOLUME 92.2 fl (80.0-96.0); MONO # 0.3 10^3/uL (0.0-0.8); MONO % 5.4 % (2.0-8.0); NEUTROPHILS # 2.8 10^3/uL (1.5-8.5); NEUTROPHILS % 59.5 % (36.0-66.0); PLATELET COUNT, AUTOMATED 183 10^3/uL (150-450); RED BLOOD COUNT 4.72 10^6/uL (4.00-5.40); WHITE BLOOD COUNT 4.8 10^3/uL (4.0-10.0)
[2023-10-02 13:04] LABS: ALBUMIN 4.3 G/DL (3.2-5.2); ALKALINE PHOSPHATASE 114 U/L (46-116); ALT/SGPT 32 U/L (7.0-40); AST/SGOT 18 U/L (<34); BILIRUBIN,TOTAL 0.7 MG/DL (0.3-1.2); BLOOD UREA NITROGEN 13 MG/DL (9-23); CALCIUM LEVEL 9.6 MG/DL (8.5-10.1); CARBON DIOXIDE LEVEL 27 MMOL/L (20-31); CHLORIDE LEVEL 108 MMOL/L (98-107); CHOLESTEROL LEVEL 218 MG/DL (<200); CHOLESTEROL RISK RATIO 5.08 (<5); CREATININE FOR GFR 0.94 MG/DL (0.55-1.30); GLOMERULAR FILTRATION RATE > 60.0 (>51); GLUCOSE, FASTING 80 MG/DL (60-100); HDL CHOLESTEROL 42.9 MG/DL (>40); LDL CHOLESTEROL 121.1 MG/DL (<100); NON-HDL-C 175.1 MG/DL; POTASSIUM SERUM 3.9 MMOL/L (3.5-5.1); SODIUM LEVEL 144 MMOL/L (136-145); TOTAL PROTEIN 7.8 G/DL (5.7-8.2); TRIGLYCERIDES LEVEL 270 MG/DL (<150)
[2023-10-02 13:05] LABS: FREE T4 0.91 NG/DL (0.89-1.76); THYROID STIMULATING HORMONE 1.687 uIU/ML (0.55-4.78)
[2023-10-02 13:06] LABS: FOLATE > 24.0 NG/ML (>5.4); VITAMIN B12 LEVEL 543 PG/ML (211-911)
[2023-10-02 13:22] LABS: HEMOGLOBIN A1c 4.9 % (4.0-6.0)
== END ==
LOC: M LAB 11:35
PROVIDERS: ATTEND Physician Assistant
DX: F41.9 Anxiety disorder, unspecified (principal); E78.2 Mixed hyperlipidemia; E55.9 Vitamin D deficiency, unspecified; R94.6 Abnormal results of thyroid function studies; Z79.899 Other long term (current) drug therapy

== ENCOUNTER → 2024-03-17 | Outpatient (CLI) | payer MEDICARE, MEDICAID ==
[2024-03-17 17:48] LABS: TOTAL 25(OH) VITAMIN D 38.7 NG/ML (20.0-100.0)
[2024-03-17 17:50] LABS: ALBUMIN 4.1 G/DL (3.2-5.2); ALKALINE PHOSPHATASE 111 U/L (35-104); ALT/SGPT 26 U/L (7.0-40); AST/SGOT 21 U/L (<34); BILIRUBIN,TOTAL 0.4 MG/DL (0.3-1.2); BLOOD UREA NITROGEN 13 MG/DL (9-23); CALCIUM LEVEL 9.8 MG/DL (8.5-10.1); CARBON DIOXIDE LEVEL 30 MMOL/L (20-31); CHLORIDE LEVEL 105 MMOL/L (98-107); CHOLESTEROL LEVEL 188 MG/DL (<200); CHOLESTEROL RISK RATIO 4.74 (<5); CREATININE FOR GFR 0.97 MG/DL (0.55-1.30); GLOMERULAR FILTRATION RATE > 60.0 (>51); GLUCOSE, FASTING 65 MG/DL (60-100); HDL CHOLESTEROL 39.6 MG/DL (>40); LDL CHOLESTEROL 73.8 MG/DL (<100); NON-HDL-C 148.4 MG/DL; POTASSIUM SERUM 3.9 MMOL/L (3.5-5.1); SODIUM LEVEL 144 MMOL/L (136-145); TOTAL PROTEIN 7.5 G/DL (5.7-8.2); TRIGLYCERIDES LEVEL 373 MG/DL (<150)
== END ==
LOC: M WUC 12:47
PROVIDERS: ATTEND Registered Nurse
DX: E78.00 Pure hypercholesterolemia, unspecified (principal); E55.9 Vitamin D deficiency, unspecified

== ENCOUNTER → 2024-12-15 | Outpatient (CLI) | payer MEDICARE, MEDICAID ==
[~2024-12-15] MED LIST changes: -PRAV40TA2 PO; +PRAV40TA85 PO
== END ==
LOC: M WUC 12:34
PROVIDERS: ATTEND Registered Nurse
DX: M25.562 Pain in left knee (principal)